=== PATIENT | male | born 1985 | race Caucasian/White ===

== ENCOUNTER 2018-06-14 16:34 | Emergency (ER) | payer OTHER ==
[2018-06-14] MEDS ORDERED: Sodium Chloride 0.9% 10 ML Syringe FLUSH PRN (16:43)
[2018-06-14] MEDS ORDERED: Ondansetron 4 MG/2 ML SDV IVPUSH ONE (16:43)
[2018-06-14] MEDS ORDERED: Sodium Chloride 0.9% 1,000 ML IV SCH ×2 (16:45→18:00)
--- NOTE | 2018-06-14 16:54 | EDM.PDOC ---
ED HPI GENERAL MEDICAL PROBLEM - General Chief Complaint: Gastrointestinal Problem Stated Complaint: abdominal pain, nausea Time Seen by Provider: 06/14/18 16:42 Source of Information: Reports: Patient History Limitations: Reports: No Limitations - History of Present Illness INITIAL COMMENTS - FREE TEXT/NARRATIVE: Patient comes in with complaints of abdominal pain and nausea that started about 6 days ago. He reports that it does worsen after eating. He denies any vomiting. Was seen in the clinic yesterday for similar symptoms. At that time labwork was negative so he was sent home. It has worsened since he was seen. He did call the clinic today and told to come to the ER for further evaluation. Denies headache, chest pain, sob, change in loc, no constipation but does endorse diarrhea. He denies fever or chills. Extremities have full ROM. Onset: Gradual Duration: Getting Worse Location: Reports: Abdomen Quality: Reports: Sharp, Stabbing Severity: Severe Improves with: Reports: None Worsens with: Reports: Eating, Movement Associated Symptoms: Reports: Nausea/Vomiting Right Upper Abdomen Pain Score (Numeric/FACES): 7 - Related Data Allergies Allergy/AdvReac Type Severity Reaction Status Date / Time Sulfa (Sulfonamide Allergy Cannot Verified 06/14/18 17:00 Antibiotics) Remember Home Meds: Home Meds Cetirizine [ZyrTEC] 10 mg PO DAILY 06/14/18 [History] valACYclovir [Valtrex] 1 tab PO DAILY 06/14/18 [History] ED ROS GENERAL - Review of Systems Review Of Systems: See Below Constitutional: Reports: No Symptoms HEENT: Reports: No Symptoms Respiratory: Reports: No Symptoms Cardiovascular: Reports: No Symptoms Endocrine: Reports: No Symptoms GI/Abdominal: Reports: Abdominal Pain, Diarrhea, Nausea : Reports: No Symptoms Musculoskeletal: Reports: No Symptoms Skin: Reports: No Symptoms Neurological: Reports: No Symptoms Psychiatric: Reports: No Symptoms Hematologic/Lymphatic: Reports: No Symptoms Immunologic: Reports: No Symptoms ED EXAM, GI/ABD - Physical Exam Exam: See Below Exam Limited By: No Limitations General Appearance: Alert, WD/WN, Moderate Distress Eyes: Bilateral: Normal Appearance, EOMI Ears: Normal External Exam, Normal Canal, Hearing Grossly Normal, Normal TMs Nose: Normal Inspection, Normal Mucosa, No Blood Throat/Mouth: Normal Inspection, Normal Lips, Normal Teeth, Normal Gums, Normal Oropharynx, Normal Voice, No Airway Compromise Head: Atraumatic, Normocephalic Neck: Normal Inspection, Supple, Non-Tender, Full Range of Motion Respiratory/Chest: No Respiratory Distress, Lungs Clear, Normal Breath Sounds, No Accessory Muscle Use, Chest Non-Tender Cardiovascular: Normal Peripheral Pulses, Regular Rate, Rhythm, No Edema, No Gallop, No JVD, No Murmur, No Rub GI/Abdominal Exam: Rigid, Rebound, Tender, Abnormal Bowel Sounds (hypoactive x 4 quadrants) Back Exam: Normal Inspection, Full Range of Motion, NT Extremities: Normal Inspection, Normal Range of Motion, Non-Tender, Normal Capillary Refill, No Pedal Edema Neurological: Alert, Oriented, CN II-XII Intact, Normal Cognition, Normal Gait, Normal Reflexes, No Motor/Sensory Deficits Psychiatric: Normal Affect, Normal Mood Skin Exam: Warm, Dry, Intact, Normal Color, No Rash Lymphatic: No Adenopathy Course - Vital Signs Last Recorded V/S: Last Vital Signs Temp 36.1 C 06/14/18 16:36 Pulse 84 06/14/18 16:36 Resp 20 06/14/18 16:36 BP 144/98 H 06/14/18 16:36 Pulse Ox 99 06/14/18 16:36 - Orders/Labs/Meds Orders: Active Orders 24 hr Category Date Time Status UA W/MICROSCOPIC [URIN] Stat Lab 06/14/18 16:50 Ordered Sodium Chloride 0.9% [Normal Saline] 1,000 ml Med 06/14/18 16:45 Active IV ASDIRECTED Sodium Chloride 0.9% [Normal Saline] 1,000 ml Med 06/14/18 18:00 Ordered IV ASDIRECTED Sodium Chloride 0.9% [Saline Flush] Med 06/14/18 16:43 Active 10 ml FLUSH ASDIRECTED PRN Saline Lock Insert [OM.PC] Routine Oth 06/14/18 16:43 Ordered Medication Orders Sodium Chloride (Normal Saline) 1,000 mls @ 999 mls/hr IV ASDIRECTED BIANCA Last Admin: 06/14/18 17:11 Dose: 999 mls/hr Sodium Chloride (Normal Saline) 1,000 mls @ 999 mls/hr IV ASDIRECTED BIANCA Sodium Chloride (Saline Flush) 10 ml FLUSH ASDIRECTED PRN PRN Reason: Keep Vein Open Labs: Laboratory Tests 06/14/18 06/14/18 06/14/18 Range/Units 16:52 16:52 16:52 WBC 9.1 (4.0-10.0) x10^3/uL RBC 6.03 H (4.5-6.0) x10^6/uL Hgb 17.0 (14.0-18.0) g/dL Hct 47.8 (40.0-52.0) % MCV 79.3 (78.0-93.0) fL MCH 28.2 (26.0-32.0) pg MCHC 35.6 (32.0-36.0) g/dL RDW Coeff of Stalin 14.6 (10.0-15.0) % Plt Count 257 (130-400) x10^3/uL Neut % (Auto) 54.2 (50.0-80.0) % Lymph % (Auto) 36.5 (25.0-50.0) % Pender % (Auto) 8.1 (2.0-11.0) % Eos % (Auto) 1.0 (0.0-4.0) % Baso % (Auto) 0.2 (0.2-1.2) % Sodium 139 (136-145) mmol/L Potassium 3.9 (3.5-5.1) mmol/L Chloride 101 (98-107) mmol/L Carbon Dioxide 26 (21-32) mmol/L Anion Gap 15.9 (10-20) mmol/L BUN 14 (7-18) mg/dL Creatinine 1.0 (0.70-1.30) mg/dL Est Cr Clr Drug Dosing TNP Estimated GFR (MDRD) > 60 Glucose 109 H (74-106) mg/dL Lactic Acid 1.6 (0.4-2.0) mmol/L Calcium 9.6 (8.5-10.1) mg/dL Corrected Calcium 9.60 (8.5-10.1) mg/dL Total Bilirubin 1.0 (0.2-1.0) mg/dL AST 28 (15-37) U/L ALT 68 H (16-63) U/L Alkaline Phosphatase 126 H (46-116) U/L C-Reactive Protein 0.2 (<=0.9) mg/dL Total Protein 8.0 (6.4-8.2) g/dL Albumin 4.0 (3.4-5.0) g/dL Globulin 4.0 Albumin/Globulin Ratio 1.00 Amylase 45 (25-115) U/L Lipase 163 (73-393) U/L TSH, Ultra Sensitive 1.555 (0.358-3.74) uIU/mL Meds: Medications Generic Name Dose Route Start Last Admin Trade Name Freq PRN Reason Stop Dose Admin Sodium Chloride 1,000 mls @ 999 mls/hr 06/14/18 16:45 06/14/18 17:11 Normal Saline IV 999 mls/hr ASDIRECTED BIANCA Administration Sodium Chloride 1,000 mls @ 999 mls/hr 06/14/18 18:00 Normal Saline IV ASDIRECTED BIANCA Sodium Chloride 10 ml 06/14/18 16:43 Saline Flush FLUSH ASDIRECTED PRN Keep Vein Open Discontinued Medications Generic Name Dose Route Start Last Admin Trade Name Freq PRN Reason Stop Dose Admin Hydromorphone HCl 1 mg 06/14/18 16:57 Dilaudid IVPUSH 06/14/18 16:58 ONETIME ONE Iopamidol 100 ml 06/14/18 17:46 06/14/18 17:48 Isovue-300 (61%) IVPUSH 06/14/18 17:47 100 ml ONETIME ONE Administration Ondansetron HCl 4 mg 06/14/18 16:43 06/14/18 17:11 Zofran IVPUSH 06/14/18 16:44 4 mg ONETIME ONE Administration - Radiology Interpretation Free Text/Narrative:: CT exam shows an enteritis. No abnormal gall bladder, appendix. Pancreas, liver, kidneys normal. No cystitis Departure - Departure Time of Disposition: 18:16 Disposition: Home, Self-Care 01 Condition: Good Clinical Impression: Enteritis - Discharge Information *PRESCRIPTION DRUG MONITORING PROGRAM REVIEWED*: No *COPY OF PRESCRIPTION DRUG MONITORING REPORT IN PATIENT SOFIYA: No Instructions: Viral Gastroenteritis, Adult, [id number] Forms: ED Department Discharge Additional Instructions: Plan 1. Take pain and nausea medications as needed 2. Likely a viral gastroenteritis. CT showed normal kidneys, liver, pancreas, gall bladder, and appendix. No bowel obstruction 3. Stay well hydrated and limit yourself to a clear to full liquid diet 4. Follow up in the clinic as needed 5. Please call with any questions or concerns - Problem List & Annotations (1) Enteritis SNOMED Code(s): 71549876 Code(s): K52.9 - NONINFECTIVE GASTROENTERITIS AND COLITIS, UNSPECIFIED Status: Acute Priority: Low Current Visit: Yes - Problem List Review Problem List Initiated/Reviewed/Updated: Yes - My Orders Last 24 Hours: My Active Orders 06/14/18 16:43 Sodium Chloride 0.9% [Saline Flush] 10 ml FLUSH ASDIRECTED PRN Saline Lock Insert [OM.PC] Routine 06/14/18 16:45 Sodium Chloride 0.9% [Normal Saline] 1,000 ml IV ASDIRECTED 06/14/18 16:50 UA W/MICROSCOPIC [URIN] Stat 06/14/18 18:00 Sodium Chloride 0.9% [Normal Saline] 1,000 ml IV ASDIRECTED - Assessment/Plan Last 24 Hours: My Active Orders 06/14/18 16:43 Sodium Chloride 0.9% [Saline Flush] 10 ml FLUSH ASDIRECTED PRN Saline Lock Insert [OM.PC] Routine 06/14/18 16:45 Sodium Chloride 0.9% [Normal Saline] 1,000 ml IV ASDIRECTED 06/14/18 16:50 UA W/MICROSCOPIC [URIN] Stat 06/14/18 18:00 Sodium Chloride 0.9% [Normal Saline] 1,000 ml IV ASDIRECTED Assessment:: enteritis Plan: Plan 1. Take pain and nausea medications as needed 2. Likely a viral gastroenteritis. CT showed normal kidneys, liver, pancreas, gall bladder, and appendix. No bowel obstruction 3. Stay well hydrated and limit yourself to a clear to full liquid diet 4. Follow up in the clinic as needed 5. Please call with any questions or concerns
[2018-06-14] MEDS: HYDROmorphone 1 MG/ML Syringe IVPUSH ONE ×2 (17:13→18:13)
[2018-06-14 17:28] LABS: CHLORIDE,CL 101 mmol/L (98-107); SODIUM,NA 139 mmol/L (136-145)
[2018-06-14 17:29] LABS: ANION GAP 15.9 mmol/L (10-20)
[2018-06-14] MEDS ORDERED: Iopamidol 612 MG/ML 100 ML Bottle IVPUSH ONE (17:46)
--- NOTE | 2018-06-14 18:07 | CT ---
[id number] CT/CT Abdomen Pelvis W IV EXAM: CT Abdomen Pelvis W IV CLINICAL DATA: ABDOMINAL PAIN. COMPARISON STUDY: None. FINDINGS: Lung bases are clear. Liver, spleen, gallbladder, pancreas, adrenal glands, and kidneys are unremarkable. No bowel obstruction or inflammation. Multiple prominent fluid-filled loops of small bowel can be seen with acute enteritis. The appendix is visualized and appears normal. No lymphadenopathy, free fluid, or pneumoperitoneum. No fracture or osseous lesion. IMPRESSION: 1. Multiple prominent fluid-filled loops of small bowel could be seen with acute enteritis. No evidence of obstruction. Pierre Parry DO 06/14/18 1806 Thank you for allowing us to participate in the care of your patient.
[2018-06-14] MEDS ORDERED: Take Home: Acetaminophen/HYDROcodone 325-5 MG, 5 Tab Pack PO ONE (18:16)
[2018-06-14] MEDS ORDERED: Take Home: Ondansetron 4 MG Tab.DIS, 2 Tab Pack PO ONE (18:16)
== END 2018-06-14 18:36 | disposition home or self-care (01) ==
LOC: VM.ED 16:34
DX: K52.9 Noninfective gastroenteritis and colitis, unspecified (principal); Z79.899 Other long term (current) drug therapy; Z88.2 Allergy status to sulfonamides
CPT/HCPCS: 36415; 74177; 80053; 81001; 82150; 83605; 83690; 84443; 85025; 86140; 96361; 96374; 96375; 99284; A9270; J1170; J2405; J7030; Q9967

== ENCOUNTER 2021-03-02 12:53 | Emergency (ER) | payer OTHER ==
[2021-03-02] MEDS ORDERED: Aspirin 81 MG Tab.Chew PO ONE (13:35)
[2021-03-02 14:14] LABS: CHLORIDE,CL 102 mmol/L (98-107); SODIUM,NA 142 mmol/L (136-145)
[2021-03-02 14:17] LABS: ANION GAP 14.5 mmol/L (5-15)
--- NOTE | 2021-03-02 14:19 | EDM.PDOC ---
ED HPI GENERAL MEDICAL PROBLEM - General Chief Complaint: Cardiovascular Problem Stated Complaint: HEART ISSUES Time Seen by Provider: 03/02/21 13:10 Source of Information: Reports: Patient History Limitations: Reports: No Limitations - History of Present Illness INITIAL COMMENTS - FREE TEXT/NARRATIVE: Pt. presents to ER with complaints of intermittent chest pressure and palpit ations. Pt. states that he has been experiencing these symptoms intermittently for months, but states that they seem worse since shoveling snow this . He states that the symptoms started last spring after having coronavirus. He states that the worsening of the symptoms started on Tuesday after shoveling. Pt. was pain free on arrival to ER but reported some"bubbling" sensation in his chest. He states on Tuesday he did become somewhat lightheaded and was diaphoretic while shoveling snow. Pt. denies any jaw, arm, neck or back pain. No current lightheadedness. No nausea or vomiting. Pt. is a non-smoker/non-drinker. He states that he drinks about 20 oz. of coffee a day, and denies any other significant caffeine consumption. Denies consumption of energy drinks or supplements. No illicit drug use. He states that his Mother has a history or atrial fibrillation. Onset: Today Onset Date: 03/02/21 Location: Reports: Chest, Generalized Associated Symptoms: Reports: Chest Pain (Had on Tuesday.), Other (palpitations). Denies: Diaphoresis, Nausea/Vomiting, Shortness of Breath Middle Chest Pain Score (Numeric/FACES): 1 - Related Data Allergies Allergy/AdvReac Type Severity Reaction Status Date / Time Sulfa (Sulfonamide Allergy Cannot Verified 03/02/21 13:15 Antibiotics) Remember Home Meds: Home Meds valACYclovir [Valtrex] 1 tab PO DAILY 06/14/18 [History] Fexofenadine [Daksha] 180 mg PO DAILY 03/02/21 [History] Past Medical History HEENT History: Reports: Allergic Rhinitis - Infectious Disease History Infectious Disease History: Reports: Novel Coronavirus Social & Family History - Tobacco Use Tobacco Use Status *Q: Never Tobacco User - Recreational Drug Use Recreational Drug Use: No ED ROS GENERAL - Review of Systems Review Of Systems: See Below Constitutional: Reports: No Symptoms HEENT: Reports: No Symptoms Respiratory: Reports: No Symptoms Cardiovascular: Reports: Chest Pain (Tuesday), Palpitations Endocrine: Reports: No Symptoms GI/Abdominal: Reports: No Symptoms : Reports: No Symptoms Musculoskeletal: Reports: No Symptoms Skin: Reports: No Symptoms Neurological: Reports: No Symptoms Psychiatric: Reports: No Symptoms Hematologic/Lymphatic: Reports: No Symptoms Immunologic: Reports: No Symptoms ED EXAM, GENERAL - Physical Exam Exam: See Below Exam Limited By: No Limitations General Appearance: Alert, WD/WN, No Apparent Distress Neck: Normal Inspection, Supple, Non-Tender, Full Range of Motion Respiratory/Chest: No Respiratory Distress, Lungs Clear, Normal Breath Sounds, No Accessory Muscle Use, Chest Non-Tender Cardiovascular: Normal Peripheral Pulses, Regular Rate, Rhythm, No Edema, No Gallop, No JVD, No Murmur GI/Abdominal: Soft, Non-Tender, No Distention, No Mass (Male) Exam: Deferred Rectal (Males) Exam: Deferred Extremities: Normal Inspection, Normal Range of Motion, Non-Tender, No Pedal Edema, Normal Capillary Refill Neurological: Alert, Oriented, CN II-XII Intact, Normal Cognition, Normal Gait, Normal Reflexes, No Motor/Sensory Deficits Psychiatric: Normal Affect, Normal Mood Skin Exam: Warm, Dry, Intact, Normal Color, No Rash Lymphatic: No Adenopathy #1 Interpretation Rhythm: NSR [place]: Normal P-Wave: Present QRS: Normal ST-T: Normal QT: Normal Course - Vital Signs Last Recorded V/S: Last Vital Signs Temp 36.8 C 03/02/21 12:56 Pulse 89 03/02/21 12:56 Resp 16 03/02/21 12:56 BP 110/80 03/02/21 12:56 Pulse Ox 96 03/02/21 12:56 - Orders/Labs/Meds Labs: Laboratory Tests 03/02/21 03/02/21 Range/Units 13:40 13:40 WBC 7.1 (4.0-10.0) x10^3/uL RBC 5.50 (4.5-6.0) x10^6/uL Hgb 16.2 (14.0-18.0) g/dL Hct 44.6 (40.0-52.0) % MCV 81.1 (78.0-93.0) fL MCH 29.5 (26.0-32.0) pg MCHC 36.3 H (32.0-36.0) g/dL RDW Coeff of Stalin 12.9 (10.0-15.0) % Plt Count 208 (130-400) x10^3/uL Immature Gran % (Auto) 0.30 (0.00-0.43) % Neut % (Auto) 67.5 (50.0-80.0) % Lymph % (Auto) 26.5 (25.0-50.0) % [place] % (Auto) 4.8 (2.0-11.0) % Eos % (Auto) 0.6 (0.0-4.0) % Baso % (Auto) 0.3 (0.2-1.2) % Neut # (Auto) 4.8 (1.8-7.7) x10^3/uL Lymph # (Auto) 1.9 (1.0-4.8) x10^3/uL Moffat # (Auto) 0.3 (0.0-0.8) x10^3/uL Eos # (Auto) 0.0 (0.0-0.5) x10^3/uL Baso # (Auto) 0.0 (0.0-0.2) x10^3/uL Immature Gran # (Auto) 0.02 (0.00-0.07) x10^3/uL Sodium 142 (136-145) mmol/L Potassium 4.5 (3.5-5.1) mmol/L Chloride 102 (98-107) mmol/L Carbon Dioxide 30 (21-32) mmol/L Anion Gap 14.5 (5-15) mmol/L BUN 17 (7-18) mg/dL Creatinine 1.1 (0.70-1.30) mg/dL Est Cr Clr Drug Dosing TNP Estimated GFR (MDRD) > 60 Glucose 115 H (70-99) mg/dL Calcium 9.1 (8.5-10.1) mg/dL Corrected Calcium 9.3 (8.5-10.1) mg/dL Phosphorus 4.4 (2.6-4.7) mg/dL Magnesium 2.2 (1.8-2.4) mg/dL Total Bilirubin 0.7 (0.2-1.0) mg/dL AST 38 H (15-37) U/L ALT 97 H (16-63) U/L Alkaline Phosphatase 100 (46-116) U/L Troponin I High Sens < 4 (<=76) ng/L C-Reactive Protein 0.3 (<=0.9) mg/dL NT-Pro-B Natriuret Pep < 5 (<=125) pg/mL Total Protein 7.5 (6.4-8.2) g/dL Albumin 3.8 (3.4-5.0) g/dL Globulin 3.7 Albumin/Globulin Ratio 1.03 TSH, Ultra Sensitive 0.918 (0.358-3.74) uIU/mL Meds: Medications Discontinued Medications Generic Name Dose Route Start Last Admin Trade Name Freq PRN Reason Stop Dose Admin Aspirin 324 mg 03/02/21 13:35 03/02/21 13:00 Aspirin 81 Mg Tab.Chew PO 03/02/21 13:36 324 mg ONETIME ONE Administration Departure - Departure Time of Disposition: 14:49 Disposition: Home, Self-Care 01 Clinical Impression: Palpitations, Chest pain Instructions: Palpitations, [id number] Referrals: Mimi Ignacio MD [Primary Care Provider] - Forms: ED Department Discharge Additional Instructions: [facility] will be in contact regarding a holter study and stress test. Return to ER if you have sustained chest pain or racing heart. Off work today and tomorrow. Sepsis Event Note (ED) - Focused Exam Vital Signs: Vital Signs Temp Pulse Resp BP Pulse Ox 03/02/21 12:56 36.8 C 89 16 110/80 96 - Problem List Review Problem List Initiated/Reviewed/Updated: Yes - Assessment/Plan Plan: ER evaluation today was within normal limits. EKG was normal, as was trop I. LFTs mildly elevated, but this was present in the clinic in 2019 as well. Will get patient set up for holter study and stress test as an outpatient. He will return if he has sustained tachycardia/palpitations, shortness of breath or lightheadedness.
== END 2021-03-02 14:45 | disposition home or self-care (01) ==
LOC: VM.ED 12:53
DX: R07.89 Other chest pain (principal); R00.2 Palpitations; Z88.2 Allergy status to sulfonamides; Z86.16 Personal history of COVID-19
CPT/HCPCS: 36415; 80053; 83735; 83880; 84100; 84443; 84484; 85025; 86140; 93005; 93010; 99284; 99285-25; A9270-GY